=== PATIENT | female | born 1960 | race Hispanic/Latino ===

== ENCOUNTER 2021-09-08 15:57 | Emergency (ER) | payer OTHER ==
[~2021-09-08] VITALS: Ht 152.4 cm; Wt 69.9 kg
[2021-09-08 15:59] VITALS: BP 131/76
[2021-09-08] MEDS ORDERED: KETOROLAC 60 MG VIAL (30MG/ML) ONE (16:23)
[2021-09-08] MEDS ORDERED: KETOROLAC 60 MG VIAL (30MG/ML) IM ONE (16:30)
[2021-09-08] MEDS ORDERED: CYCL10TA16 PO (17:30)
[2021-09-08] MEDS ORDERED: MELO7.5T12 PO (17:30)
== END 2021-09-08 17:38 | disposition home or self-care (01) ==
LOC: EDH 15:57
DX: S16.1XXA Strain of muscle, fascia and tendon at neck level, initial encounter (principal); S29.012A Strain of muscle and tendon of back wall of thorax, initial encounter; S40.012A Contusion of left shoulder, initial encounter; S80.02XA Contusion of left knee, initial encounter; Z79.1 Long term (current) use of non-steroidal anti-inflammatories (NSAID); V49.49XA Driver injured in collision with other motor vehicles in traffic accident, initial encounter; Y93.89 Activity, other specified; Y92.89 Other specified places as the place of occurrence of the external cause; Y99.8 Other external cause status
CPT/HCPCS: 72040; 73010; 73030; 73562; 96372; 99284; J1885

== ENCOUNTER 2022-04-05 18:00 | Emergency (ER) | payer BC, OTHER ==
[~2022-04-05] VITALS: Ht 152.4 cm; Wt 69.9 kg
[~2022-04-05 18:00] MED LIST: CYCL10TA16 PO; MELO7.5T12 PO
[2022-04-05 18:06] VITALS: BP 132/66
[2022-04-05] MEDS ORDERED: KETOROLAC 60 MG VIAL (30MG/ML) IM ONE (20:00)
[2022-04-05] MEDS ORDERED: HYDROCODONE/ACETAMINOPHEN 5/325 MG TAB PO ONE (20:00)
[2022-04-05] MEDS ORDERED: TRAM1TAB2 PO (20:04)
[2022-04-05] MEDS ORDERED: NAPR-1180 PO (20:07)
== END 2022-04-05 20:22 | disposition home or self-care (01) ==
LOC: EDH 18:00
DX: M17.12 Unilateral primary osteoarthritis, left knee (principal); I10 Essential (primary) hypertension; Z79.1 Long term (current) use of non-steroidal anti-inflammatories (NSAID)
CPT/HCPCS: 73564; J1885

== ENCOUNTER 2024-10-04 14:35 | Emergency (ER) | payer BC ==
[~2024-10-04] VITALS: Ht 154.9 cm; Wt 76.2 kg
[~2024-10-04 14:35] MED LIST changes: +NAPR-1180 PO; +TRAM1TAB2 PO
[2024-10-04] MEDS: DiphenhydrAMINE HCL 50 MG/ML VIAL IV ONE (15:02)
[2024-10-04] MEDS: Solu-medROL 125MG VIAL IVP ONE (15:02)
[2024-10-04] MEDS: EPINEPHrine PF 1MG (1:1,000) 1 MG/ML AMP ONE (15:02)
[2024-10-04] MEDS: FAMOTIDINE 20MG VIAL IV ONE (15:02)
[2024-10-04] MEDS: 0.9%NACL 1000ML 1,000 ML IV ONE (15:02)
--- NOTE | 2024-10-04 15:11 | ERN ---
General Chief Complaint: Allergic Reaction Stated Complaint: ALLERGIC REACTION Time Seen by MD: 14:45 Time Seen by Midlevel: 14:45 Source: patient History of Present Illness Initial Comments Patient is a 64-year-old female with a past medical history of hypertension presenting to the emergency department for an allergic reaction. Patient reports eating a bag of an assorted variety of nuts. Shortly after she reports feeling like her throat was closing and developed a rash throughout her entire body. Daughter at bedside states she has had a similar episode in the past after eating mangoes. No other symptoms reported at this time. Allergies: Coded Allergies: No Known Drug Allergies (Unverified Allergy, Unknown, 09/08/21) Home Meds Active Scripts Epinephrine (Epipen 2-Lencho) 0.3 Mg/0.3 Ml Auto.injct, 1 SYR IM ONCE for 1 Day, #1 PACKET 0 Refills Prov:BIANKA PEPE 10/04/24 Diphenhydramine HCl (Benadryl) 25 Mg Cap, 25 MG PO BID for 7 Days, #14 CAP Prov:BIANKA PEPE 10/04/24 Methylprednisolone (Medrol) 4 Mg Tab.ds.pk, 1 TAB PO AD for 6 Days, #21 TAB 0 Refills 6 on day 1 then reduce by one tablet daily until gone Prov:BIANKA PEPE 10/04/24 Naproxen (Naprosyn) 500 Mg Tablet, 500 MG PO BIDPC, #60 TAB Prov:SHANELL MATTHEWS 04/05/22 Tramadol HCl/Acetaminophen (Ultracet Tablet) 1 Each Tablet, 2 EACH PO TID, #40 TAB Prov:SHANELL MATTHEWS 04/05/22 Meloxicam (Mobic) 7.5 Mg Tablet, 7.5 MG PO BIDAC, #60 TAB Prov:SHANELL MATTHEWS 09/08/21 Cyclobenzaprine HCl (Flexeril) 10 Mg Tab, 10 MG PO BID, #30 TAB Prov:SHANELL MATTHEWS 09/08/21 Past Medical History Past Medical History: Hypertension Medical History Other: Overweight Past Surgical History: Other Surgical History Other: ARM Family History Family History: Negative Social History Social History: Negative ROS Dictation CONSTITUTIONAL: Negative except for HPI HEAD/FACE: Negative except for HPI EENT: Negative except for HPI RESPIRATORY: Negative except for HPI GASTROINTESTINAL/ABDOMINAL: Negative except for HPI GENITOURINARY: Negative except for HPI MUSCULOSKELETAL: Negative except for HPI INTEGUMENTARY: Negative except for HPI NEUROLOGICAL/PSYCH: Negative except for HPI HEMATOLOGIC/LYMPHATIC: Negative except for HPI All Systems Negative, Except as noted above. 13 point review of systems assessed and all negative except for above. Physical Exam Physical Exam Dictation Vital Signs reviewed: Hypotensive 78/34 General Appearance: Alert, oriented x 3, mild distress Head and Face: non-traumatic. Eyes: PERRL, pink conjunctivas, eyelid no trauma, anterior chamber with arcus senilis. Ears: Pinnas intact and no signs of trauma or erythema ear canals clear and no discharge TM no erythema Nose: No discharge, no bleeding. Oropharynx: Mouth normal, tongue pink, pharynx clear,no erythema, tonsils no exudates, no abscesses noted, mucous membrane moist Neck: Supple, non-tender, no thyromegaly, no masses, no JVD, no bruits Breast:Deferred Chest:No tenderness, no crepitus, no paradoxical movement, no retractions Lungs:Clear, well-ventilated, symmetric, no rales, no wheezing, no rhonchi, no stridor, good breath sounds bilaterally Heart: Tachycardic, regular rhythm, no murmur, no gallops Vascular: no peripheral edema, Abdomen: Soft, positive bowel sounds, nondistended, no guarding, nontender, no rebound, no masses no hepatomegaly, no splenomegaly, no Casanova's sign, no hernias. Rectal: Deferred Genital: Deferred Neurological: Normal speech, motor function intact, sensory function intact Musculoskeletal: Neck nontender, full range of motion, back nontender, full range of motion, Extremities: nontender, full range of motion Skin: Color pink, dry, no turgor, generalized rash, no lacerations, no ab rasions, no contusions. Lymphatic: Deferred Results Laboratory and Microbiology Lab and Micro Result Laboratory Tests Test 10/04/24 15:16 White Blood Count 13.2 K/uL (4.8-10.8) H Red Blood Count 3.87 MIL/uL (4.00-5.50) L Hemoglobin 11.7 g/dL (12.0-16.0) L Hematocrit 36.9 % (36-48) Mean Corpuscular Volume 95.3 fL (79-99) Mean Corpuscular Hemoglobin 30.2 pg (27.0-33.0) Mean Corpuscular Hemoglobin Concent 31.7 g/dL (32.0-36.0) L Red Cell Distribution Width 12.6 % (11.0-15.5) Platelet Count 304 K/uL (130-400) Mean Platelet Volume 11.1 fL (7.5-10.5) H Immature Granulocyte % (Auto) 0.4 % (0-1) Neutrophils (%) (Auto) 48.2 % (40.0-77.0) Lymphocytes (%) (Auto) 43.4 % (21.0-51.0) Monocytes (%) (Auto) 6.4 % (3.0-13.0) Eosinophils (%) (Auto) 1.4 % (0.0-8.0) Basophils (%) (Auto) 0.2 % (0.0-5.0) Neutrophils # (Auto) 6.4 K/uL (1.8-7.7) Lymphocytes # (Auto) 5.7 K/uL (1.0-4.8) H Monocytes # (Auto) 0.9 K/uL (0.1-1.0) Eosinophils # (Auto) 0.18 K/uL (0.00-0.70) Basophils # (Auto) 0.03 K/uL (0.00-0.20) Absolute Immature Granulocyte (auto 0.05 K/uL (0-1) Segmented Neutrophils % 46 % (40-70) Band Neutrophils % 1 % (0-2) Lymphocytes % (Manual) 39 % (22-44) Monocytes % (Manual) 2 % (2-9) Eosinophils % (Manual) 1 % (1-6) Nucleated Red Blood Cells 0.0 % (0.0-0.19) Differential Comment MANUAL DIFFERENTIAL Reactive Lymphocytes 11 % (0-0) H White Cell Morphology Comment Platelet Morphology Comment Red Blood Cell Morphology See comments Sodium Level 143 mmol/L (136-145) Potassium Level 2.8 mmol/L (3.5-5.1) *L Chloride Level 108 mmol/L (101-111) Carbon Dioxide Level 27 mmol/L (21-32) Blood Urea Nitrogen 35 mg/dL (7-18) H Creatinine 0.9 mg/dL (0.5-1.0) Glomerular Filtration Rate Calc 72 mL/min (>90) Random Glucose 182 mg/dL (70-105) H Total Calcium 8.6 mg/dL (8.5-10.1) Total Creatine Kinase 77 U/L (21-232) Troponin I High Sensitivity 9 ng/L (4-50) Labs Reviewed?: Yes MDM MDM: Patient is a 64-year-old female with a past medical history of hypertension presenting to the emergency department for an allergic reaction. Patient reports eating a bag of an assorted variety of nuts. Shortly after she reports feeling like her throat was closing and developed a rash throughout her entire b lyle. Daughter at bedside states she has had a similar episode in the past after eating mangoes. No other symptoms reported at this time. On arrival patient appears to be tachypneic. Initial blood pressure was 70 systolic with a map of four four. There was a generalized rash consistent with hives. Patient was immediately taken to [place] [facility] where she had an IV placed and started on IV fluids. She was given 0.5 mg of epi IM along ilfv705 mg of Solu-Medrol, 50 mg of Benadryl, and 20 mg of Pepcid IV. Blood pressure significantly improved after IV fluids and epinephrine. Patient was closely observed in the emergency department for over4 hours and remained stable and asymptomatic. Patient was discharged home with an EpiPen along with a Medrol pack and Benadryl for outpatient management. She was advised to return to the emergency department if you develop any new or worsening symptoms. Differential diagnosis: Anaphylaxis, acute allergic reaction, There are no social concerns with this patient. Prescription drug management Prescriptions will include: Medrol pack, Benadryl, EpiPen Medical management and examination interpretation discussions were had by me with other qualified healthcare professionals as indicated for the patient's care. ED Course Orders Procedure Category Date Status Time Methylprednisolone PHA 10/04/24 Complete Succ 125mg (Solu-Medr 15:00 0.9%Nacl 1000ml (Ns PHA 10/04/24 Complete 1000ml) 15:00 Diphenhydramine Hcl PHA 10/04/24 Complete (Benadryl Inj) 15:00 Famotidine 20mg Vial PHA 10/04/24 Complete (Pepcid 20mg Vial) 15:00 Epinephrine Pf 1mg PHA 10/04/24 Complete (1:1,000) (Adrenaline 14:40 Cbc With Differential LAB 10/04/24 In Process 14:46 Basic Metabolic Panel LAB 10/04/24 Complete 14:46 Troponin I High LAB 10/04/24 Complete Sensitivity 14:46 Creatine Kinase, Total LAB 10/04/24 Complete 14:46 12 Lead Ekg Tracing- EKG 10/04/24 Logged Technical 14:46 Pharmacy PHA 10/04/24 Complete Communication 15:30 Epinephrine Pf 1mg PHA 10/04/24 Complete (1:1,000) (Adrenaline 15:30 Potassium Bicarb/Cit PHA 10/04/24 Complete Ac 25meq (K-Lyte Ta 16:30 Manual Differential LAB 10/04/24 In Process 15:16 Current Medications Medications (Trade) Dose Ordered Sig/Wilber Route PRN Reason Start Time Stop Time Status Last Admin Dose Admin Diphenhydramine HCl (BENAdryl INJ) 25 mg ONCE ONCE IV 10/04/24 15:00 10/04/24 15:01 DC 10/04/24 15:02 Epinephrine HCl (ADRENaline PF 1MG AMP) 0.3 mg ONCE ONCE IM 10/04/24 15:30 10/04/24 15:31 DC Epinephrine HCl (ADRENaline PF 1MG AMP) 1 mg STK-MED ONCE .ROUTE 10/04/24 14:40 10/04/24 14:40 DC 10/04/24 15:02 Famotidine (Pepcid 20mg Vial) 20 mg ONCE ONCE IV 10/04/24 15:00 10/04/24 15:01 DC 10/04/24 15:02 Methylprednisolone Sodium Succinate (Solu-medROL 125MG) 125 mg ONCE ONCE IVP 10/04/24 15:00 10/04/24 15:01 DC 10/04/24 15:02 Pharmacy Profile Note (Pharmacy Communication) 1 each ONCE MISC 10/04/24 15:30 10/04/24 15:10 DC Potassium Bicarbonate (K-Lyte Tablet Eff 25 Meq Tablet.eff) 50 meq ONCE ONCE PO 10/04/24 16:30 10/04/24 16:31 DC 10/04/24 16:15 Sodium Chloride 1,000 ml @ 0 mls/hr ONCE ONCE IV 10/04/24 15:00 10/04/24 15:01 DC 10/04/24 15:02 Vital Signs Date Time Temp Pulse Resp B/P (MAP) Pulse Ox O2 Delivery O2 Flow Rate FiO2 10/04/24 18:51 81 16 124/58 97 Room Air* 0 21 10/04/24 17:26 97.9 89 18 131/56 98 Room Air* 0 21 10/04/24 15:13 103 20 137/43 98 Room Air* 0 10/04/24 14:51 74 19 136/64 100 Room Air* 0 10/04/24 14:46 101 24 116/68 100 Room Air* 0 21 10/04/24 14:36 97.7 54 20 78/34 99 Room Air Procedure Dictation Total critical care time: Approximately 30 minutes Due to a high probability of clinically significant, life threatening deterioration, the patient required my highest level of preparedness to intervene emergently and I personally spent this critical care time directly and personally managing the patient. This critical care time included obtaining a history; examining the patient; pulse oximetry; ordering and review of studies; arranging urgent treatment with development of a management plan; evaluation of patient's response to treatment; frequent reassessment; and, discussions with other providers. This critical care time was performed to assess and manage the high probability of imminent, life-threatening deterioration that could result in multi-organ failure. It was exclusive of separately billable procedures and treating other patients and teaching time. Please see MDM section and the rest of the note for further information on patient assessment and treatment. DX & DISP Disposition: Discharge Departure Impression: Primary Impression: Anaphylaxis Condition: Stable Scripts Epinephrine (Epipen 2-Lencho) 0.3 Mg/0.3 Ml Auto.injct 1 SYR IM ONCE for 1 Day, #1 PACKET 0 Refills Prov: BIANKA PEPE 10/04/24 Diphenhydramine HCl (Benadryl) 25 Mg Cap 25 MG PO BID for 7 Days, #14 CAP Prov: BIANKA PEPE 10/04/24 Methylprednisolone (Medrol) 4 Mg Tab.ds.pk 1 TAB PO AD for 6 Days, #21 TAB 0 Refills 6 on day 1 then reduce by one tablet daily until gone Prov: BIANKA PEPE 10/04/24 Referrals: ALEXSANDRA PEPE MD (PCP) Time of Disposition: 18:45 I have reviewed the case, and I agree with, Diagnosis and Plan I performed the substantive portion of the visit. I have reviewed and personally made and approve the management plan that is documented in the note by myself or the AIDEN. I acknowledge for responsibility for the patient's management plan. BIANKA PEPE Oct 04, 2024 15:11
[2024-10-04] MEDS: EPINEPHrine PF 1MG (1:1,000) 1 MG/ML AMP IM ONE (15:25)
[2024-10-04 15:28] LABS: BASOPHILS # (AUTO) 0.03 K/uL (0.00-0.20); BASOPHILS % (AUTO) 0.2 % (0.0-5.0); EOSINOPHILS # (AUTO) 0.18 K/uL (0.00-0.70); EOSINOPHILS % (AUTO) 1.4 % (0.0-8.0); HEMATOCRIT 36.9 % (36-48); IMMATURE GRANULOCYTE ABSOLUTE 0.05 K/uL (0-1); LYMPHOCYTES # (AUTO) 5.7 K/uL (1.0-4.8); LYMPHOCYTES % (AUTO) 43.4 % (21.0-51.0); MEAN CORPUSCULAR HEMOGLOBIN 30.2 pg (27.0-33.0); MEAN CORPUSCULAR HGB CONC 31.7 g/dL (32.0-36.0); MEAN CORPUSCULAR VOLUME 95.3 fL (79-99); MONOCYTES # (AUTO) 0.9 K/uL (0.1-1.0); MONOCYTES % (AUTO) 6.4 % (3.0-13.0); NEUTROPHILS # (AUTO) 6.4 K/uL (1.8-7.7); NEUTROPHILS % (AUTO) 48.2 % (40.0-77.0); PLATELET COUNT (AUTO) 304 K/uL (130-400); RED BLOOD CELL COUNT(AUTO) 3.87 MIL/uL (4.00-5.50); RED CELL DISTRIBUTION WIDTH 12.6 % (11.0-15.5); WHITE BLOOD COUNT (AUTO) 13.2 K/uL (4.8-10.8)
[2024-10-04] MEDS ORDERED: PHARMACY COMMUNICATION MISC SCH (15:30)
[2024-10-04 15:48] LABS: CREATININE 0.9 mg/dL (0.5-1.0)
[2024-10-04 15:53] LABS: POTASSIUM 2.8 mmol/L (3.5-5.1)
[2024-10-04] MEDS: PoTASSium BIcarbonate/CIT AC 25 MEQ TABLET.EFF PO ONE (16:15)
[2024-10-04 16:28] LABS: BAND NEUTROPHILS % (MANUAL) 1 % (0-2); EOSINOPHILS % (MANUAL) 1 % (1-6); LYMPHOCYTES % (MANUAL) 39 % (22-44); MAN.DIFF COMMENT-IMPRESSION MANUAL DIFFERENTIAL; MONOCYTES % (MANUAL) 2 % (2-9); REACTIVE LYMPHOCYTES 11 % (0-0); SEGMENTED NEUTROPHILS % 46 % (40-70); TOTAL CELLS COUNTED 100
[2024-10-04 17:26] VITALS: TEMP 97.8
[2024-10-04] MEDS ORDERED: DIPH-1242 PO (18:47)
[2024-10-04] MEDS ORDERED: METH4TAB3 PO (18:47)
[2024-10-04] MEDS ORDERED: EPIN0.3P3 IM (18:47)
[2024-10-04 18:51] VITALS: BP 124/58; PULSE 81; RESP 16; O2SAT 97
--- NOTE | 2024-10-04 21:57 | EKG ---
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
[2024-10-04 22:27] LABS: PLATELET MORPHOLOGY COMMENT ADEQUATE; WBC MORPHOLOGY NO BLASTS SEEN
== END 2024-10-04 19:10 | disposition home or self-care (01) ==
LOC: EDH 14:35
DX: T78.2XXA Anaphylactic shock, unspecified, initial encounter (principal); I10 Essential (primary) hypertension; Z79.899 Other long term (current) drug therapy
CPT/HCPCS: 99291; 96374; 96361; 96375; 82550; 84484; 80048; 85025; 36415; 93005; 96372; J1200; J3490; J7030; J2919; J0171